=== PATIENT | male | born 1940 | race Caucasian/White ===

== ENCOUNTER → 2017-12-09 12:03 | Outpatient (CLI) | payer MEDICARE, OTHER, SELFPAY ==
--- NOTE | 2017-12-09 12:05 | DI.RAD.S_ITS ---
PROCEDURE: XR HIP W PEL IF DONE RT 2V INDICATIONS: right hip pain, no trauma TECHNIQUE: AP pelvis with lateral view(s) of the right hip. COMPARISON: None. FINDINGS: Bones: No fractures or dislocations. Pelvic ring appears intact. No suspicious bony lesions. Asymmetric right greater than left lumbosacral spine degenerative disc disease partially visualized. Facet osteoarthritis also appears greater on the right than the left. Hip joint osteoarthritis and symmetric. Soft tissues: The visualized bowel gas pattern is normal. No suspicious soft tissue calcifications. IMPRESSION: Symmetric mild to moderate hip joint osteoarthritis, no trauma found. Degenerative disc disease and facet osteoarthritis at the low lumbosacral spine visualized by this study appears greater on the right than the left and referred pain as cause of asymmetrically greater right-sided hip pain may explain this symptomatology. Dictated by: Husam Cuevas M.D. on 12/09/2017 at 12:35 Approved by: Husam Cuevas M.D. on 12/09/2017 at 12:37
== END ==
PROVIDERS: PCP Family Medicine; Visit Provider Family Medicine
DX: M16.0 Bilateral primary osteoarthritis of hip (principal); M47.817 Spondylosis without myelopathy or radiculopathy, lumbosacral region; M51.37 Other intervertebral disc degeneration, lumbosacral region
CPT/HCPCS: 73502

== ENCOUNTER → 2017-12-18 06:34 | Outpatient (CLI) | payer MEDICARE, OTHER, SELFPAY ==
--- NOTE | 2017-12-18 06:37 | DI.MRI.S_ITS ---
PROCEDURE: MR LUMBAR SPINE WO CON INDICATIONS: LOW BACK PAIN WITH R SIDE SCIATICA TECHNIQUE: Noncontrast sagittal T1 spin echo and T2 fast echo, sagittal STIR, axial T1 and T2 fast spin echo through the lumbar spine. In cases with scoliosis, additional coronal T2 fast spin echo may be performed. COMPARISON: None. FINDINGS: Image quality: Excellent. Alignment and Curvature: Loss of normal lumbar lordosis. Mild scoliosis. There is grade 1 retrolisthesis at L2-L3, L3-L4, L4-L5 and L5-S1. Bone Marrow: There are diffuse degenerative endplate signal changes. No acute vertebral body compression fractures. Spinal Cord: Conus medullaris terminates at the L1 level. Visualized cord demonstrates normal signal and size. Paraspinous Soft Tissues: No paravertebral masses. T12-L1: Mild loss disc height. Moderate disc desiccation. There is diffuse disc bulge. The central canal is minimally narrowed. Moderate bilateral foraminal stenosis. L1-L2: Mild loss disc height. Moderate disc desiccation. There is diffuse disc bulge and disc osteophyte complex. The central canal is minimally narrowed. Moderate left and mild right foraminal stenosis. L2-L3: Moderate loss disc height. Moderate disc desiccation. There is diffuse disc bulge and disc osteophyte complex. Mild bilateral facet arthropathy. The central canal is minimally narrowed. Moderate left and mild right foraminal stenosis. L3-L4: Moderate loss disc height and disc desiccation. There is broad posterior disc bulge and disc osteophyte complex. Mild bilateral facet arthropathy and hypertrophy of ligamentum flavum. The central canal is severely narrowed. Severe bilateral foraminal stenosis. L4-L5: Mild loss disc height. Moderate disc desiccation. There is broad posterior disc bulge and disc osteophyte complex. Mild bilateral facet arthropathy. The central canal is minimally narrowed. Severe bilateral foraminal stenosis. L5-S1: Preserved disc height. Moderate disc desiccation. There is diffuse posterior disc bulge at and disc osteophyte complex. The central canal is minimally narrowed. Severe bilateral foraminal stenosis. IMPRESSION: 1. Multilevel degenerative disc disease and facet arthropathy as described. 2. Severe central canal stenosis at L3-L4. 3. Multilevel foraminal stenoses, severe at L3-L4 bilaterally, L4-L5 bilaterally and L5-S1 bilaterally. Dictated by: Pradip Grimm M.D. on 12/18/2017 at 16:31 Transcribed by: ROSALINE on 12/18/2017 at 16:45 Approved by: Pradip Grimm M.D. on 12/19/2017 at 9:45
== END ==
PROVIDERS: PCP Family Medicine; Visit Provider Family Medicine
DX: M51.36 Other intervertebral disc degeneration, lumbar region (principal); M47.816 Spondylosis without myelopathy or radiculopathy, lumbar region; M48.061 Spinal stenosis, lumbar region without neurogenic claudication; M99.73 Connective tissue and disc stenosis of intervertebral foramina of lumbar region
CPT/HCPCS: 72148

== ENCOUNTER → 2018-03-05 12:22 | Outpatient (CLI) | payer MEDICARE, OTHER, SELFPAY ==
[2018-03-05 13:05] LABS: Alanine Aminotransferase 24 IU/L (21-72); Albumin 4.7 g/dL (3.5-5.0); Albumin Globulin Ratio 1.6 (1.0-2.8); Alkaline Phosphatase 49 U/L (38-126); Aspartate Aminotransferase 29 IU/L (17-59); BUN Creatinine Ratio 28.8 (6-22); Bilirubin Total 1.5 mg/dL (0.2-1.3); Blood Urea Nitrogen 23 mg/dL (9-20); Calcium 9.4 mg/dL (8.4-10.2); Carbon Dioxide 29 mmol/L (22-32); Chloride 98 mmol/L (98-107); Estimated Glomerular Filt Rate > 60.0 mL/min (>60); Globulin 2.9 g/dL (1.7-4.1); Glucose 140 mg/dL (80-110); HEMOLYSIS 37 (0-50); Potassium 4.1 mmol/L (3.4-5.1); Sodium 138 mmol/L (137-145); Total Protein 7.6 g/dL (6.3-8.2)
[2018-03-09 14:12] LABS: Hepatitis A Antibody IgM NONREACTIVE; Hepatitis Acute Panel Interp 0.01; Hepatitis B Core Antibody IgM NONREACTIVE; Hepatitis B Surface Antigen NONREACTIVE; Hepatitis C Antibody NONREACTIVE
== END ==
PROVIDERS: PCP Family Medicine; Visit Provider Family Medicine
DX: R94.5 Abnormal results of liver function studies (principal)
CPT/HCPCS: 36415; 80053; 80074

== ENCOUNTER → 2019-01-04 09:03 | Outpatient (CLI) | payer MEDICARE, OTHER, SELFPAY ==
--- NOTE | 2019-01-04 | DI.RAD.S_ITS ---
PROCEDURE: FL SHOULDER INJECTION MR/CT RT INDICATIONS: Unspecified disorder of synovium and tendon, right TECHNIQUE: The indications, alternatives, benefits, risks, and complications of the procedure were explained to the patient. Written informed consent was obtained and placed in the chart. The shoulder was examined fluoroscopically and a site for needle placement chosen for entry into the glenohumeral joint from an anterior approach. The skin was prepped and draped in a sterile fashion, and 1% lidocaine infiltrated from skin down to joint capsule. A spinal needle was inserted into the glenohumeral joint, and a small amount of iodinated contrast media injected to confirm intra-articular placement of the needle tip. This was followed by approximately 12 mL dilute solution of a gadolinium containing MR contrast agent. The needle was removed and a dressing was applied. The patient was given postprocedural instructions and sent to the MR suite for MR imaging. FINDINGS: A single fluoroscopic spot image demonstrates intra-articular location of injected iodinated contrast. IMPRESSION: Successful fluoroscopically guided administration of dilute Gadolinium solution into the shoulder joint for MR arthrogram. Dictated by: Husam Cuevas M.D. on 01/04/2019 at 10:06 Approved by: Husam Cuevas M.D. on 01/04/2019 at 10:06
--- NOTE | 2019-01-04 | DI.MRI.S_ITS ---
PROCEDURE: MR SHOULDER RT W CON INDICATIONS: Unspecified disorder of synovium and tendon, right TECHNIQUE: After the administration of 12 mL of dilute intra-articular Gadolinium contrast, oblique coronal T1 and T2 spin echo with fat saturation, oblique sagittal T1 spin echo with and without fat saturation, oblique sagittal T2 fast spin echo with fat saturation, axial T1 spin echo with fat saturation through the shoulder. COMPARISON: None. FINDINGS: Image quality: Susceptibility artifact are noted from surgical hardware in anterior humeral head from prior rotator cuff tendon repair. Rotator cuff: There is full-thickness rupture involving the anterior fibers of distal supraspinatus at its insertion the humeral head with medial retraction of torn tendon fibers and fluid-filled Measures 9 x 7 mm in mediolateral and AP dimension. Tendinosis and low-grade articular surface partial-thickness tear involving the distal infraspinatus is seen. There is suggestion of high-grade partial-thickness tear involving the distal subscapularis tendon near its insertion on the humeral head. Mild to moderate grade supraspinatus muscle atrophy and severe subscapularis muscle atrophy is seen on sagittal images. Bones and bursae: Post surgical changes in anterior aspect of humeral head from prior subscapularis tendon repair is seen. No fracture or dislocation. Moderate acromioclavicular joint and glenohumeral joint osteoarthritic changes are seen. Capsule and soft tissues: The labrum and glenohumeral ligaments appear intact. Proximal long head of biceps tendon is not visualized suggestive of torn proximal intra-articular portion of The biceps tendon. The rotator interval appears normal, without fibrosis. The coracohumeral ligament is of normal thickness. No intra-articular bodies. IMPRESSION: 1. Focal full-thickness rupture involving anterior fibers of distal supraspinatus at its insertion the humeral head with a 9 mm medial retraction of torn tendon fibers. 2. Tendinosis and low-grade articular surface partial-thickness involving distal infraspinatus at its insertion on humeral head. 3. High-grade partial to full-thickness rupture involving the distal subscapularis tendon. Prior subscapularis tendon repair with post surgical changes in humeral head. 4. Severe subscapularis muscle atrophy and mild supraspinatus muscle atrophy. 5. No evidence of focal labral tear. Suggestion of torn intra-articular portion of long head biceps tendon. 6. Moderate acromial clavicular joint and glenohumeral joint osteoarthritis. No fracture or dislocation. Dictated by: Samuel Lagunas M.D. on 01/04/2019 at 13:50 Approved by: Samuel Lagunas M.D. on 01/04/2019 at 14:03
== END ==
PROVIDERS: PCP Family Medicine; Visit Provider Orthopaedic Surgery
DX: M67.911 Unspecified disorder of synovium and tendon, right shoulder (principal); M75.121 Complete rotator cuff tear or rupture of right shoulder, not specified as traumatic; M19.011 Primary osteoarthritis, right shoulder; M62.511 Muscle wasting and atrophy, not elsewhere classified, right shoulder
CPT/HCPCS: 23350; 73222; 77002

== ENCOUNTER 2019-04-04 13:24 | Observation (INO) | payer MEDICARE, OTHER, SELFPAY ==
[2019-04-04 13:33] VITALS: BP 156/63; PULSE 61; RESP 16; TEMP 37; O2SAT 96; BMI 30.9
--- NOTE | 2019-04-04 13:34 | ED.NEUROSD ---
HPI - Neuro Symptoms/Deficit General Chief Complaint: Neuro Symptoms/Deficit Stated Complaint: Thinks TIA Time Seen by Provider: 04/04/19 13:27 Source: patient Mode of arrival: ambulatory Limitations: no limitations History of Present Illness HPI Narrative: Patient is a 79-year-old male with history of hypertension presenting with vision and speech difficulty. states that at 12:30 p.m. he was looking at a computer the son was shining in his vision got blurry he did not have any loss of vision in either eye he does had difficulty making things out and that did resolve. However the states that afterwards she could not understand anything he was saying and he was talking gibberish. That lasted for about 10 minutes. Symptoms have completely resolved now. At no time did he have any facial drooping weakness of extremities numbness or tingling. He has no chest pain heart palpitations or shortness of breath. Onset (ago): hour(s) (1) Timing confirmed by: spouse Location: speech History of same: No Relieving factors: time Related Data Previous Rx's Medication Instructions Recorded aspirin 81 mg PO QDAY #180 tab 05/05/17 sildenafil [Viagra] 50 mg PO PRN PRN #6 tab 05/05/17 losartan 100 1 tab PO QDAY #180 tab 04/06/18 mg-hydrochlorothiazide 25 mg tablet Allergies Allergy/AdvReac Type Severity Reaction Status Date / Time cat dander [CAT DANDER] Allergy Unknown Verified 11/04/18 11:36 Review of Systems Review of Systems ROS Unobtainable: All systems reviewed & are unremarkable except as noted in HPI and below Constitutional Constitutional: Denies chills, Denies fever(s), Denies lethargy and Denies weakness Eyes Eyes: Reports as per HPI, Reports blurry vision, Denies change in vision, Denies eye discharge, Denies irritation and Denies loss of vision ENT Ears, Nose, Mouth, and Throat: Denies change in voice, Denies neck pain and Denies sore throat Cardiovascular Cardiovascular: Denies dyspnea and Denies dyspnea on exertion Respiratory Respiratory: Denies cough, Denies dyspnea, Denies dyspnea on exertion and Denies wheezing Gastrointestinal Gastrointestinal: Denies abdominal pain, Denies change in bowel habits, Denies diarrhea, Denies nausea and Denies vomiting Genitourinary Genitourinary: Denies hematuria, Denies flank pain, Denies urinary incontinence and Denies urinary urgency Musculoskeletal Musculoskeletal: Denies neck pain Integumentary/Breasts Skin/Breast: Denies pruritus, Denies erythema, Denies rash and Denies wounds Neurologic Neurologic: Reports as per HPI, Denies loss of vision and Denies weakness Allergic/Immunologic Allergic/Immunologic: Denies wheezing [facility] Social History household members: spouse Smoking Status: Former smoker alcohol intake: current Exam Initial Vital Signs Initial Vital Signs: Vital Signs Temperature 98.6 F 04/04/19 13:33 Pulse Rate 61 04/04/19 13:33 Respiratory Rate 16 04/04/19 13:33 Blood Pressure 156/63 H 04/04/19 13:33 Pulse Oximetry 96 04/04/19 13:33 GENERAL: Alert pleasant well-appearing male and in no acute distress. HEENT: Head atraumatic,EOMI, pupils reactive, face symmetric, moist mucous membranes CARDIOVASCULAR: Regular rate and rhythm without murmurs, rubs or gallops. RESPIRATORY: Breath sounds equal bilaterally, no wheezes rales or rhonchi. ABDOMEN: Soft, nontender. Normoactive bowel sounds all 4 quadrants. No guarding or rebound. EXTREMITIES: Normal range of motion, no clubbing or edema. Neurovascularly intact NEUROLOGICAL: Alert and oriented x4.Normal gait and speech. Cranial nerves II through XII grossly intact. Good [id number], good ibxk-[id number], strength equal bilaterally, no dysarthria or aphasia, sensation in tact to soft touch bilaterally, no visual changes, no facial droop SKIN: Warm, dry, no laceration, no petechiae, no rashes or lesions. Scores ABCD2 Age >= 60 years: yes Initial BP. Either SBP >= 140 or DBP >= 90.: yes Clinical features of the TIA: speech disturbance without weakness Duration of symptoms: < 10 minutes History of diabetes: no ABCD2 Score: 3 NIH Stroke Scale Level of Conciousness: Alert, keenly responsive Ask month/age: Answers both questions correctly. Open/close eyes, close hand: Performs both tasks correctly Best gaze horizontal: Normal Visual venegas: No visual loss Facial palsy: Normal symetrical movement Left arm drift: No drift for full 10 sec Right arm drift: No drift for full 10 sec Left leg drift: No drift for full 10 sec Right leg drift: No drift for full 10 sec Limb ataxia: Absent Sensory on face/arms/legs: Normal, no sensory loss Best language: No aphasia, normal Dysarthria: Normal Extinction or inattention: No abnormality Total NIH Stroke scale score: 0 Course Orders Ordered: ED Orders 04/04/19 13:32 EKG-12 Lead Stat 04/04/19 13:34 CT head/brain wo con Stat 04/04/19 13:42 Complete Blood Count AUTO DIFF Stat Comprehensive Metabolic Panel Stat Partial Thromboplastin Time Stat Prothrombin Time INR Stat Troponin I Stat 04/04/19 15:08 Urine Drug Screen, Rapid Stat Urine Microscopic Stat Aspirin (Aspirin Ec) 81 mg PO DAILY ZBIGNIEW Enoxaparin Sodium (Lovenox) 40 mg SUBCUT DAILY [facility]BIGNIEW Hydrochlorothiazide (Hydrochlorothiazide) 25 mg PO DAILY ZBIGNIEW Losartan Potassium (Cozaar) 100 mg PO DAILY ZBIGNIEW Discontinued Medications Aspirin (Aspirin Chew) 324 mg PO NOW ONE Stop: 04/04/19 14:52 Last Admin: 04/04/19 14:59 Dose: 324 mg Documented by: HFARRINGTO Vital Signs Vital signs: Vital Signs - 8 hr 04/04/19 13:33 04/04/19 15:06 Temperature 98.6 F Pulse Rate 61 53 L Respiratory Rate 16 18 Blood Pressure 156/63 H Blood Pressure [Left Arm] 126/64 Pulse Oximetry 96 98 MDM - Neuro Symptoms/Deficit Lab Data Attestation: I reviewed the patient's lab results. Result diagrams: 04/04/19 13:42 04/04/19 13:42 Labs: Lab Results 04/04/19 04/04/19 04/04/19 Range/Units 13:42 13:42 13:42 WBC 5.9 (4.5-11.0) X10^3/uL RBC 4.79 (4.5-5.9) X10^6/uL Hgb 16.3 (13.5-17.5) g/dL Hct 46.5 (41-53) % MCV 97.2 (80-100) fL MCH 34.1 H (26-34) PG MCHC 35.1 (30-36) % RDW 13.5 (11.6-14.8) % Plt Count 222 (150-400) X10^3/uL Neut % (Auto) 44.5 L (50-75) % Lymph % (Auto) 43.7 H (25-40) % Kerr % (Auto) 6.3 (3-14) % Eos % (Auto) 4.4 H (2-4) % Baso % (Auto) 1.1 (0-2) % Neut # (Auto) 2600 (0331-6254) /uL Lymph # (Auto) 2600 (5313-6110) /uL Kerr # (Auto) 400 (0-900) /uL Eos # (Auto) 300 (0-450) /uL Baso # (Auto) 100 (0-100) /uL PT 11.9 (10.1-12.7) SECONDS INR 1.0 (0.9-1.3) APTT 32 (26.4-36.2) SECONDS Sodium 139 (137-145) mmol/L Potassium 3.8 (3.4-5.1) mmol/L Chloride 102 (98-107) mmol/L Carbon Dioxide 25 (22-32) mmol/L BUN 21 H (9-20) mg/dL Creatinine 0.80 (0.66-1.25) mg/dL Estimated GFR > 60.0 (>60) mL/min BUN/Creatinine Ratio 26.3 H (6-22) Glucose 120 H (80-110) mg/dL Calcium 9.2 (8.4-10.2) mg/dL Total Bilirubin 1.6 H (0.2-1.3) mg/dL AST 31 (17-59) IU/L ALT 22 (21-72) IU/L Alkaline Phosphatase 65 (38-126) U/L Troponin I 0.014 (0.01-0.034) ng/mL Total Protein 7.5 (6.3-8.2) g/dL Albumin 4.5 (3.5-5.0) g/dL Globulin 3.0 (1.7-4.1) g/dL Albumin/Globulin Ratio 1.5 (1.0-2.8) Urine RBC (0-5/HPF) Urine WBC (0-5/HPF) Urine Bacteria (None) Ur Culture Indicated? Micro UA Comment Urine Opiates Screen (Negative) Ur Oxycodone Screen (Negative) Urine Methadone Screen (Negative) Ur Barbiturates Screen (Negative) U Tricyclic Antidepress (Negative) Ur Phencyclidine Scrn (Negative) Ur Amphetamines Screen (Negative) U Methamphetamines Scrn (Negative) Ur MDMA Scrn (Ecstasy) (Negative) U Benzodiazepines Scrn (Negative) Urine Cocaine Screen (Negative) U Marijuana (THC) Screen (Negative) 04/04/19 04/04/19 Range/Units 15:08 15:08 WBC (4.5-11.0) X10^3/uL RBC (4.5-5.9) X10^6/uL Hgb (13.5-17.5) g/dL Hct (41-53) % MCV (80-100) fL MCH (26-34) PG MCHC (30-36) % RDW (11.6-14.8) % Plt Count (150-400) X10^3/uL Neut % (Auto) (50-75) % Lymph % (Auto) (25-40) % Kerr % (Auto) (3-14) % Eos % (Auto) (2-4) % Baso % (Auto) (0-2) % Neut # (Auto) (3543-7086) /uL Lymph # (Auto) (3108-9473) /uL Kerr # (Auto) (0-900) /uL Eos # (Auto) (0-450) /uL Baso # (Auto) (0-100) /uL PT (10.1-12.7) SECONDS INR (0.9-1.3) APTT (26.4-36.2) SECONDS Sodium (137-145) mmol/L Potassium (3.4-5.1) mmol/L Chloride (98-107) mmol/L Carbon Dioxide (22-32) mmol/L BUN (9-20) mg/dL Creatinine (0.66-1.25) mg/dL Estimated GFR (>60) mL/min BUN/Creatinine Ratio (6-22) Glucose (80-110) mg/dL Calcium (8.4-10.2) mg/dL Total Bilirubin (0.2-1.3) mg/dL AST (17-59) IU/L ALT (21-72) IU/L Alkaline Phosphatase (38-126) U/L Troponin I (0.01-0.034) ng/mL Total Protein (6.3-8.2) g/dL Albumin (3.5-5.0) g/dL Globulin (1.7-4.1) g/dL Albumin/Globulin Ratio (1.0-2.8) Urine RBC None seen (0-5/HPF) Urine WBC None seen (0-5/HPF) Urine Bacteria None seen (None) Ur Culture Indicated? Cult not indicated Micro UA Comment Microscopic normal Urine Opiates Screen Negative (Negative) Ur Oxycodone Screen Negative (Negative) Urine Methadone Screen Negative (Negative) Ur Barbiturates Screen Negative (Negative) U Tricyclic Antidepress Negative (Negative) Ur Phencyclidine Scrn Negative (Negative) Ur Amphetamines Screen Negative (Negative) U Methamphetamines Scrn Negative (Negative) Ur MDMA Scrn (Ecstasy) Negative (Negative) U Benzodiazepines Scrn Negative (Negative) Urine Cocaine Screen Negative (Negative) U Marijuana (THC) Screen Positive H (Negative) Point of Care Testing Glucose POC 102 Urine Dip Bedside Urine Glucose Negative Bedside Urine Bilirubin - Negative Bedside Urine Ketone - Negative Urine Specific Maynard 1.015 Bedside Urine Occult Blood - Negative Bedside Urine pH 7.0 Bedside Urine Protein - Negative Bedside Urine Urobilinogen +/- 1mg Bedside Urine Nitrite - Negative Bedside Urine Leukocytes - Negative Esterase Imaging Data CT scan - head: Radiologist's impression: PROCEDURE: CT HEAD/BRAIN WO CON INDICATIONS: problems with speech now resolved TECHNIQUE: Noncontrast 4.5 mm thick angled axial sections acquired from the foramen magnum to the vertex, with coronal and sagittal reformats. For radiation dose reduction, the following was used: automated exposure control, adjustment of mA and/or kV according to patient size. COMPARISON: None. FINDINGS: Image quality: Diagnostic. CSF spaces: Basal cisterns are patent. No extra-axial fluid collections. Ventricles are normal in size and shape. Brain: No midline shift. No intracranial masses or hemorrhage. Porter-white matter interface is normal. There is a small area of low attenuation identified involving the periventricular white matter along the anterior right frontal lobe adjacent to the caudate nucleus. There may be additional areas of periventricular white matter low attenuation. Skull and face: Calvarium and visualized facial bones are intact, without suspicious lesions. Sinuses: Visualized sinuses and mastoids are clear. IMPRESSION: 1. No acute intracranial hemorrhage. 2. Mild chronic small vessel ischemic changes. MRI may be helpful for better characterization, if there is clinical concern for acute ischemia. Dictated by: Rainer Emery M.D. on 04/04/2019 at 13:40 ECG Data Attestation: I personally reviewed and interpreted this ECG as follows: Prior ECG tracings: available for review Interpretation: Normal sinus rhythm rate 49 p.r. interval 195 QRS 125 QTC is 451 T-wave inversions noted in lead 3 similar to previous E[place] [address] elevations or depressions. MDM Narrative Medical decision making narrative: Patient's symptoms have completely resolved. Inability to understand words with complete resolution is concerning for TIA. Patient has risk factors of hypertension. Dr. fernando updated on patient's symptoms test results agrees with observation Discharge Plan Departure Patient Disposition: Admitted as Observation Clinical Impression: Brain TIA Discharge Date/Time: 04/04/19 16:47 Admit Date/Time: 04/04/19 15:56 Admit Provider: Klaudia Fernando
[2019-04-04 13:50] LABS: Add Manual Diff / Slide Review NO; Basophils Absolute Auto 100 /uL (0-100); Basophils Percent Auto 1.1 % (0-2); Eosinophils Absolute Auto 300 /uL (0-450); Eosinophils Percent Auto 4.4 % (2-4); Hematocrit 46.5 % (41-53); Hemoglobin 16.3 g/dL (13.5-17.5); Lymphocytes Absolute Auto 2600 /uL (1100-4500); Lymphocytes Percent Auto 43.7 % (25-40); Mean Corpuscular HGB Conc 35.1 % (30-36); Mean Corpuscular Hemoglobin 34.1 PG (26-34); Mean Corpuscular Volume 97.2 fL (80-100); Monocytes Absolute Auto 400 /uL (0-900); Monocytes Percent Auto 6.3 % (3-14); Neutrophils Absolute Auto 2600 /uL (1500-7000); Neutrophils Percent Auto 44.5 % (50-75); Platelet Count 222 X10^3/uL (150-400); Red Blood Cell Count 4.79 X10^6/uL (4.5-5.9); Red Cell Distribution Width 13.5 % (11.6-14.8); White Blood Cell Count 5.9 X10^3/uL (4.5-11.0)
[2019-04-04 13:57] LABS: Prothrombin Time 11.9 SECONDS (10.1-12.7)
[2019-04-04 13:59] LABS: PTT Partial Thromboplastin Tim 32 SECONDS (26.4-36.2)
[2019-04-04 14:01] LABS: Alanine Aminotransferase 22 IU/L (21-72); Albumin 4.5 g/dL (3.5-5.0); Albumin Globulin Ratio 1.5 (1.0-2.8); Alkaline Phosphatase 65 U/L (38-126); Aspartate Aminotransferase 31 IU/L (17-59); BUN Creatinine Ratio 26.3 (6-22); Bilirubin Total 1.6 mg/dL (0.2-1.3); Blood Urea Nitrogen 21 mg/dL (9-20); Calcium 9.2 mg/dL (8.4-10.2); Carbon Dioxide 25 mmol/L (22-32); Chloride 102 mmol/L (98-107); Estimated Glomerular Filt Rate > 60.0 mL/min (>60); Glucose 120 mg/dL (80-110); HEMOLYSIS 29 (0-50); Potassium 3.8 mmol/L (3.4-5.1); Sodium 139 mmol/L (137-145); Total Protein 7.5 g/dL (6.3-8.2)
[2019-04-04 14:12] LABS: Troponin I 0.014 ng/mL (0.01-0.034)
[2019-04-04] MEDS: ASPIRIN 81 MG CHEW TAB 324 MG PO (14:59)
[2019-04-04 15:06] VITALS: BP 126/64; PULSE 53; RESP 18; O2SAT 98
[2019-04-04 15:09] LABS: Bacteria Urine None Seen; RBC Urine None Seen (0-5/HPF); WBC Urine None Seen (0-5/HPF)
[2019-04-04 15:19] LABS: Urine Amphetamines Negative (Negative); Urine Barbiturates Negative (Negative); Urine Benzodiazepines Negative (Negative); Urine Cocaine Negative (Negative); Urine MDMA Negative (Negative); Urine Methadone Negative (Negative); Urine Methamphetamines Negative (Negative); Urine Morphine/Opi cutoff 2000 Negative (Negative); Urine Oxycodone Negative (Negative); Urine Phencyclidine Negative (Negative); Urine Tetrahydrocannabinol Positive (Negative); Urine Tricyclic Antidepressant Negative (Negative)
[2019-04-04 15:22] LABS: Culture Indicated Urine Cult Not Indicated; Urine Comments Microscopic Normal
[2019-04-04 16:23] VITALS: BP 111/64; PULSE 50; RESP 12; O2SAT 99
--- NOTE | 2019-04-04 16:33 | DI.MRI.S_ITS ---
PROCEDURE: MR STROKE Pre- and post-contrast brain MRI, non-contrast brain MR angiogram, pre- and postcontrast neck MR angiogram INDICATIONS: TIA TECHNIQUE: Brain: Noncontrast axial T1 spin echo, axial T2 fast spin echo, sagittal and axial FLAIR, coronal T2 fast spin echo, axial gradient echo, axial diffusion and ADC through the brain. After the administration of contrast, axial 3D VIBE of the cranial vasculature and brain. Brain MRA: Non-contrast 3-D time of flight MR angiogram, with multiple dgufnhd-wiwhfcvxb-kstiyermik (MIP) reformats performed. Neck MRA: Axial and sagittal TruFISP through the neck. Coronal dynamic MR angiogram during administration of contrast in the arterial and venous phases, with 3-dimenstional evipbyt-qpmznvqip-zsdathnsrv (MIP) reformats constructed from subtraction images. COMPARISON: [facility], CT, CT HEAD/BRAIN WO CON, 04/04/2019, 14:13. FINDINGS: Image quality: Motion is present on multiple sequences, limiting areas of fine detail evaluation. BRAIN: The ventricular system and cortical sulci demonstrate atrophy, consistent for the patient's stated age. There are areas of increased T2/FLAIR signal intensity within the periventricular and subcortical white matter. There is no acute intra-or extra axial fluid collection. No acute hemorrhage, mass lesion or midline shift. Brainstem is unremarkable. There are no areas of restricted diffusion. Globes are symmetrical. Sinuses are aerated. Osseous structures are intact. BRAIN MR ANGIOGRAM: Anterior circulation: Intracranial internal carotid arteries are normal in size and enhancement. The flow within the paired anterior cerebral arteries is normal and symmetric. The flow within the middle cerebral arteries is normal and symmetric. The anterior communicating artery is seen. No stenoses, occlusions, or aneurysms. Posterior circulation: The visualized portions of the vertebral arteries demonstrate normal caliber, and join to form a normal appearing basilar artery. The flow within the posterior cerebral arteries is normal and symmetric. No stenoses, occlusions, or aneurysms. NECK MR ANGIOGRAM: The origins of the left and right common, internal and external carotid arteries demonstrate no areas of hemodynamically significant stenosis, vascular occlusion or aneurysmal dilation. Origins of the left and right vertebral arteries are obscured secondary to motion. 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 Limited, visualized portions subclavian vasculature are unremarkable. IMPRESSION: 1. No acute intracranial process. 2. Moderate atrophy and chronic microvascular ischemic changes. 3. Vertebral artery origins are obscured secondary to motion. 4. No areas of hemodynamically significant stenosis in the anterior or posterior circulation. Dictated by: Franchesca Nixon M.D. on 04/05/2019 at 15:13 Approved by: Franchesca Nixon M.D. on 04/05/2019 at 15:33
[2019-04-04 16:50] VITALS: BP 131/81; PULSE 52; RESP 16; TEMP 36.4; O2SAT 97
[2019-04-04 17:31] VITALS: BMI 29.8
--- NOTE | 2019-04-04 18:48 | PC.NURSE ---
Addendum entered by Sarah Rodriguez R.N. 04/04/19 21:56: Pt resting quietly Denies any discomfort and any requests. Tele SB/PVC per ICU staff. HL intact. Call light w/in reach, calls appropriately for needs. Continue w/plan of care. Addendum entered by Sarah Rodriguez R.N. 04/04/19 21:55: Original Note: Pt admitted from the ER for possible TIA Lungs clear, SpO2 97% RA Tele in place, showing SB/BBB/first degree AVB per ICU staff. Pt oriented to room and call system. Call light w/in reach.
[2019-04-04 20:37] VITALS: BP 118/77; PULSE 62; RESP 16; TEMP 36.5; O2SAT 95
[2019-04-04 23:51] VITALS: BP 123/58; PULSE 52; RESP 16; TEMP 36.3; O2SAT 94
--- NOTE | 2019-04-05 00:03 | P.HP_ITS ---
History of Present Illness History of Present Illness Date Patient Seen: 04/04/19 Time Patient Seen: 21:45 Chief complaint: Thinks TIA Narrative: Mr. Moon Hernandez is a 79 year old male with a history significant for hypertension, hyperlipidemia, hepatomegaly, spinal stenosis with radiculopathy, BPH, obstructive sleep apnea and insomnia who presents to the emergency department with an episode of expressive aphasia. States at 12:30 p.m. he was looking at the computer and found he could not read the phone number on the screen and was asking his to read the phone number to him when she stated he was speaking gibberish. The patient states he knew what he wanted to say but could not. Reports the symptoms lasted approximately 10 minutes however at the encouragement of his the patient presented to the ER for evaluation. He has had no similar symptoms in the past. He denies complaints of recent cold illness, no fevers chills, headaches or dizziness. Reports no difficulty chewing or swallowing nasal congestion or sore throat. He has no chest pain or palpitations, shortness of breath cough or wheezing. He denies abdominal pain, nausea vomiting, diarrhea or constipation. He reports no difficulty urinating. Patient has normal active baseline walking 3 days a week [facility] and goes to the gym other days. Upon arrival in the ER the patient was afebrile at 98.6 with a heart rate of 61, blood pressure 156/63, respirations of 16 and saturation of 96% on room air. Patient was evaluated with a head CT which found no bleed or acute pathology but did find ischemic small-vessel changes. On laboratory analysis CBC is within normal limits as are his electrolytes. He has a BUN of 21 and creatinine is 0.8 with a ratio of 26.3. His nonfasting glucose is 120. He has an elevated bilirubin of 1.6 with a normal AST 31, ALT of 22 and alkaline phosphatase is 65. His coags within normal limits. His troponin is 0.014. His UA is negative and his U tox is positive for marijuana with the patient and nursing use of CBD oil. Patient is admitted to the hospital for TIA. 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 Social History household members: spouse Smoking Status: Former smoker alcohol intake: current Family & Social History Family History Father Age: 101 Diabetes mellitus Mother No problems noted. Social History: household members spouse Prior Living Arrangements House Safety & Behavioral: Feels Safe in Current Yes Environment Been Physically Hurt or No Threatened By a Person Suicidal Ideation Description None Suicide Plan Description No Plan Tobacco & Substance use: Smoking Status Former smoker alcohol intake current alcohol intake frequency holiday/special occasion Substance Use Type does not use Comment: The patient lives in a single family home and has been to his 2nd for 11 years. He endorses a history of his father having diabetes and multiple TIAs. His mother of a stroke. His uncle from stroke as well he has 1 sister has a history of female problems in his 3 daughters 1 who from epilepsy and 2 others in good health. Smoking: Patient quit 40 years ago prior to that he was smoking 2 packs per day. Alcohol: Occasional wine estimated less than 1 per week. Substance use: Patient endorses use of CBD oral for sciatica and sleep. Advanced directives: Patient has formal advanced directives in which he states his desire to be FULL CODE. He designates his to be surrogate decision maker. Meds Home Medications and Allergies Home Medications Medication Instructions Recorded Confirmed Type aspirin 81 mg PO QDAY #180 tab 05/05/17 11/04/18 Rx sildenafil [Viagra] 50 mg PO PRN PRN #6 tab 05/05/17 11/04/18 Rx losartan 100 1 tab PO QDAY #180 tab 04/06/18 11/04/18 Rx mg-hydrochlorothiazide 25 mg tablet Allergies Allergy/AdvReac Type Severity Reaction Status Date / Time cat dander [CAT DANDER] Allergy Unknown Verified 11/04/18 11:36 Review of Systems Review of Systems ROS Unobtainable: All systems reviewed & are unremarkable except as noted in HPI and below Exam Vital Signs (past 8 hours): - 04/04/19 16:23 04/04/19 16:50 04/04/19 20:37 Temperature 97.5 F L 97.7 F Pulse Rate 50 L 52 L 62 Respiratory Rate 12 16 16 Blood Pressure 131/81 118/77 Blood Pressure [Left Arm] 111/64 Pulse Oximetry 99 97 95 04/04/19 23:51 Temperature 97.4 F L Pulse Rate 52 L Respiratory Rate 16 Blood Pressure 123/58 L Blood Pressure [Left Arm] Pulse Oximetry 94 Oxygen Delivery Method Room Air Narrative Exam Narrative: GENERAL APPEARANCE: well developed, well nourished, articulate gentleman in no acute distress. HEENT: Symmetrical facies, no ptosis, PERRLA, conjunctiva clear, EOMs intact without nystagmus, no sinus tenderness to percussion, no rhinorrhea, mucous membranes are moist and pink without lesions or exudate. NECK/THYROID: neck supple, no JVD, no carotid bruit, no thyromegaly, trachea midline. LYMPH NODES: no cervical or supraclavicular lymphadenopathy. SKIN: warm and dry, no suspicious lesions, no rashes, good turgor. HEART: regular rate and rhythm, S1-S2 without murmur, no rubs or gallops, brisk capillary refill, no edema LUNGS: clear to auscultation bilaterally, no coarseness crackles or wheezing, no cough present CHEST: Symmetrical movement, no accessory muscle use, no pain to AP and lateral compression. ABDOMEN: Soft, no distention, no abdominal tenderness on palpation, no organomegaly, no flank or suprapubic tenderness, active bowel tones. BACK: Normal curvature, nontender to palpation, no CVA tenderness on percussion EXTREMITIES: moves all extremities, strength is 5/5 and symmetrical, no deformities or joint effusions. NEUROLOGIC: AAO x4, NIH score is 0, cranial nerves II-XII grossly intact, no extremity drift, ataxia, sensation intact without extinction. PSYCH: alert, cognitive function intact, good eye contact, appropriate with stable behavior Objective Labs Result Diagrams: 04/04/19 13:42 04/04/19 13:42 Labs: Laboratory Results - last 24 hr 04/04/19 04/04/19 04/04/19 13:42 13:42 13:42 WBC 5.9 RBC 4.79 Hgb 16.3 Hct 46.5 MCV 97.2 MCH 34.1 H MCHC 35.1 RDW 13.5 Plt Count 222 Neut % (Auto) 44.5 L Lymph % (Auto) 43.7 H Glades % (Auto) 6.3 Eos % (Auto) 4.4 H Baso % (Auto) 1.1 Neut # (Auto) 2600 Lymph # (Auto) 2600 Glades # (Auto) 400 Eos # (Auto) 300 Baso # (Auto) 100 PT 11.9 INR 1.0 APTT 32 Sodium 139 Potassium 3.8 Chloride 102 Carbon Dioxide 25 BUN 21 H Creatinine 0.80 Estimated GFR > 60.0 BUN/Creatinine Ratio 26.3 H Glucose 120 H Calcium 9.2 Total Bilirubin 1.6 H AST 31 ALT 22 Alkaline Phosphatase 65 Troponin I 0.014 Total Protein 7.5 Albumin 4.5 Globulin 3.0 Albumin/Globulin Ratio 1.5 Urine RBC Urine WBC Urine Bacteria Ur Culture Indicated? Micro UA Comment Urine Opiates Screen Ur Oxycodone Screen Urine Methadone Screen Ur Barbiturates Screen U Tricyclic Antidepress Ur Phencyclidine Scrn Ur Amphetamines Screen U Methamphetamines Scrn Ur MDMA Scrn (Ecstasy) U Benzodiazepines Scrn Urine Cocaine Screen U Marijuana (THC) Screen 04/04/19 04/04/19 15:08 15:08 WBC RBC Hgb Hct MCV MCH MCHC RDW Plt Count Neut % (Auto) Lymph % (Auto) Glades % (Auto) Eos % (Auto) Baso % (Auto) Neut # (Auto) Lymph # (Auto) Glades # (Auto) Eos # (Auto) Baso # (Auto) PT INR APTT Sodium Potassium Chloride Carbon Dioxide BUN Creatinine Estimated GFR BUN/Creatinine Ratio Glucose Calcium Total Bilirubin AST ALT Alkaline Phosphatase Troponin I Total Protein Albumin Globulin Albumin/Globulin Ratio Urine RBC None seen Urine WBC None seen Urine Bacteria None seen Ur Culture Indicated? Cult not indicated Micro UA Comment Microscopic normal Urine Opiates Screen Negative Ur Oxycodone Screen Negative Urine Methadone Screen Negative Ur Barbiturates Screen Negative U Tricyclic Antidepress Negative Ur Phencyclidine Scrn Negative Ur Amphetamines Screen Negative U Methamphetamines Scrn Negative Ur MDMA Scrn (Ecstasy) Negative U Benzodiazepines Scrn Negative Urine Cocaine Screen Negative U Marijuana (THC) Screen Positive H Assessment & Plan Assessment & Plan narrative: The patient is admitted for transient expressive aphasia resolving prior to arrival to the ER duration approximately 10 minutes. Patient had associated visual changes that to have resolved. The patient has risk factors including hypertension hyperlipidemia and a strong family history of cerebrovascular disease. 1. Acute TIA symptoms, resolved, active -symptomatology included visual changes described as a film across vision and inability to read as well as expressive aphasia. -patient's symptoms lasted approximately 10 minutes and have resolved. NIH score is 0, ABCD 2 score is 2. -the patient previously been taking aspirin but had discontinued. Discuss risks benefits, the patient received aspirin 324 mg in the ER and will restart aspirin 81 mg daily. -risk factors including hypertension, hyperlipidemia, strong family history of cerebrovascular disease in his father his mother and his uncle. -will obtain MR stroke. -will obtain echocardiogram. 2. Essential hypertension, chronic, stable -blood pressure on arrival was 156/83 improved to 120 3/58 on the floor. -no complaints of chest pain, palpitations or headache or shortness of breath. -continue home regimen with losartan hydrochlorothiazide, 100/25 daily. 3. Hyperlipidemia, chronic, presumed stable -patient is not on any anti hyperlipidemic agents -will obtain lipid panel. -start patient on atorvastatin 20 mg daily. The patient is admitted to the hospital for cardiac monitoring and further evaluation of TIA due to risks and potential complications. The patient will be admitted as observation with expected length of stay to be less than 2 midnights. Time Spent With Patient Time with patient: 25 - 35 minutes Scores GCS [place] coma scale eye opening: Spontaneous Jaimie coma scale verbal response: Orientated [place] coma scale motor response: Obey commands Jaimie coma scale total score: 15 ABCD2 Age >= 60 years: yes Initial BP. Either SBP >= 140 or DBP >= 90.: yes Clinical features of the TIA: other symptoms (Expressive aphasia now resolved) Duration of symptoms: < 10 minutes History of diabetes: no ABCD2 Score: 2 NIHSS Level of Conciousness: Alert, keenly responsive Ask month/age: Answers both questions correctly. Open/close eyes, close hand: Performs both tasks correctly Best gaze horizontal: Normal Visual venegas: No visual loss Facial palsy: Normal symetrical movement Right arm drift: No drift for full 10 sec Left leg drift: No drift for full 5 sec Right leg drift: No drift for full 5 sec Limb ataxia: Absent Sensory on face/arms/legs: Normal, no sensory loss Best language: No aphasia, normal Dysarthria: Normal Extinction or inattention: No abnormality
[2019-04-05 00:20] VITALS: O2SAT 94
[2019-04-05] MEDS: ATORVASTATIN 20 MG TABLET PO (02:35)
[2019-04-05 04:52] VITALS: BP 100/51; PULSE 60
[2019-04-05 05:00] VITALS: BP 119/61; PULSE 52; RESP 16; TEMP 36.7; O2SAT 96
[2019-04-05 05:47] LABS: Cholesterol 169 mg/dL (140-199); HDL Cholesterol 35 mg/dL (40-60); LDL Cholesterol Calculated 111 mg/dL (<100); Triglycerides 114 mg/dL (35-150)
--- NOTE | 2019-04-05 08:30 | DI.ECHO.S_ITS ---
Echocardiogram Report + + :Name: TRINIDAD RAMIREZ Study Date: 04/05/2019 Height: 68 in : :[facility] Weight: 215 lb : : Gender: Male BSA: 2.1 m2 : :: 1940 Age: 79 yrs BP: 131/81 mmHg: :Reason For Study: TIA : : Performed By: Ofelia Busby : :Referring: Klaudia SINGH E : + + Interpretation Summary Normal sinus rhythm. Normal LV size, wall thickness, wall motion and LV systolic function. EF is 60-65%. Normal chamber sizes. No significant valvular abnormalities. No source of embolism identified. Procedure: A two-dimensional transthoracic echocardiogram with color flow and Doppler was performed. The study quality was technically adequate. There is no prior echocardiogram noted for this patient. The patient was in normal sinus rhythm during the exam. Left Ventricle: The left ventricle is normal in size, wall thickness, and systolic function without any focal wall motion abnormalities. The ejection fraction is estimated to be 60-65%. Right Ventricle: The right ventricle grossly appears normal in size with probable normal systolic function. Atria: The left atrial size is normal. Right atrial size is normal. The interatrial septum is intact with no evidence for an atrial septal defect. Mitral Valve: The mitral valve is grossly normal. There is trace mitral regurgitation. Aortic Valve: The aortic valve is trileaflet. The aortic valve opens well. No aortic regurgitation is present. Tricuspid Valve: The tricuspid valve leaflets are thin and pliable. There is mild tricuspid regurgitation. The right ventricular systolic pressure is estimated to be at least 25 mmHg based on an estimated right atrial pressure of 3 mm Hg. Pulmonic Valve: The pulmonic valve is not well seen, but is grossly normal. There is no pulmonic valvular regurgitation. Great Vessels: The aortic root is normal size. The dimensions of the ascending aorta are normal. The aortic arch is at the upper limits of normal in size. The IVC is of normal diameter and collapses greater than 50% with a sniff. This suggests a low right atrial pressure of 3 mm Hg. Pericardium/ Pleura There is no pericardial effusion. There is no pleural effusion. MMode/2D Measurements & Calculations LVIDd: 5.5 cm Ao root diam: 3.4 cm LVIDs: 3.6 cm Aortic Jxn: 2.6 cm FS: 34.2 % asc Aorta Diam: 3.1 cm EPSS: 1.1 cm Ao Arch Diam (Prox Trans): 3.2 cm IVSd: 0.74 cm LVPWd: 1.0 cm LV marquez. diameter/BSA (cm/m^2): 2.6 LV sys. diameter/BSA (cm/m^2): 1.7 LA dimension: 4.1 cm RA long axis: 4.8 cm LA A2 area: 20.4 cm2 RA area: 18.3 cm2 LA A4 area: 16.1 cm2 RA vol: 59.7 ml LA length (vol): 4.8 cm RA : 28.3 ml/m2 LA vol: 58.5 ml IVC diam: 1.5 cm LA vol index: 27.8 ml/m2 RVDd major: 5.2 cm RVD1 (basal): 3.3 cm RVD2 (mid): 3.3 cm Doppler Measurements & Calculations Ao V2 max: 164.9 cm/sec MV E max alonso: 75.0 cm/sec Ao V2 mean: 107.7 cm/sec MV A max alonso: 94.4 cm/sec Ao max P.9 mmHg MV E/A: 0.79 Ao mean P.4 mmHg Med Peak E' Alonso: 6.5 cm/sec Ao V2 VTI: 34.0 cm E/E' med: 11.5 Lat Peak E' Alonso: 8.7 cm/sec E/E' lat: 8.6 E/e' average: 10.0 MV dec time: 0.24 sec MV P1/2t: 71.7 msec TR max alonso: 234.9 cm/sec MV P1/2t max alonso: 76.3 cm/sec TR max P.1 mmHg MVA(P1/2t): 3.1 cm2 PA V2 max: 96.7 cm/sec PA V2 mean: 64.8 cm/sec PA mean P.9 mmHg PA Accel Time: 0.13 sec _ Electronically signed by: Kerri Patricio M.D. on Reading Physician:04/05/2019 07:24 PM
[2019-04-05 09:00] VITALS: BP 133/68; PULSE 51; RESP 17; TEMP 36.7; O2SAT 95
[2019-04-05] MEDS: hydroCHLOROthiazide 25 MG TABLET PO (09:17)
[2019-04-05] MEDS: ASPIRIN EC 81 MG TABLET PO (09:17)
[2019-04-05] MEDS: ENOXAPARIN 40 MG/0.4 ML SYRINGE SUBCUT (09:18)
[2019-04-05] MEDS: LOSARTAN 50 MG TABLET 100 MG PO (09:18)
[2019-04-05] MEDS: SODIUM CHLORIDE 0.9% FLUSH 10 ML IV (09:18)
[2019-04-05 09:40] VITALS: O2SAT 96
--- NOTE | 2019-04-05 09:44 | PC.NURSE ---
Patient alert,oriented denies pain and nausea. NIH 0, patient ambulating indep in room.
[2019-04-05 15:35] VITALS: BP 110/72; PULSE 53; RESP 18; TEMP 36.6; O2SAT 94
--- NOTE | 2019-04-05 15:44 | P.DS_ITS ---
History of Present Illness History of Present Illness Date Patient Seen: 04/05/19 Time Patient Seen: 15:45 Chief complaint: Thinks TIA Narrative: As per Jaydon CONNOR Mr. Moon Hernandez is a 79 year old male with a history significant for hypertension, hyperlipidemia, hepatomegaly, spinal stenosis with radiculopathy, BPH, obstructive sleep apnea and insomnia who presents to the emergency department with an episode of expressive aphasia. States at 12:30 p.m. he was looking at the computer and found he could not read the phone number on the screen and was asking his to read the phone number to him when she stated he was speaking gibberish. The patient states he knew what he wanted to say but could not. Reports the symptoms lasted approximately 10 minutes however at the encouragement of his the patient presented to the ER for evaluation. He has had no similar symptoms in the past. He denies complaints of recent cold illness, no fevers chills, headaches or dizziness. Reports no difficulty chewing or swallowing nasal congestion or sore throat. He has no chest pain or palpitations, shortness of breath cough or wheezing. He denies abdominal pain, nausea vomiting, diarrhea or constipation. He reports no difficulty urinating. Patient has normal active baseline walking 3 days a week [place] and goes to the gym other days. Upon arrival in the ER the patient was afebrile at 98.6 with a heart rate of 61, blood pressure 156/63, respirations of 16 and saturation of 96% on room air. Patient was evaluated with a head CT which found no bleed or acute pathology but did find ischemic small-vessel changes. On laboratory analysis CBC is within normal limits as are his electrolytes. He has a BUN of 21 and creatinine is 0.8 with a ratio of 26.3. His nonfasting glucose is 120. He has an elevated paul irubin of 1.6 with a normal AST 31, ALT of 22 and alkaline phosphatase is 65. His coags within normal limits. His troponin is 0.014. His UA is negative and his U tox is positive for marijuana with the patient and nursing use of CBD oil. Patient is admitted to the hospital for TIA. Discharge Providers Provider Date of admission: 04/04/19 15:56 Discharge Date: 04/05/19 Primary care physician: Semaj Sahu MD Discharge provider: Jaydon Smallwood DO Summary Hospital Course Discharge Diagnosis: 1. TIA - active, present on admission. 2. Essential hypertension, chronic, stable 3. Hyperlipidemia, chronic, presumed stable Hospital Course: The patient is admitted for transient expressive aphasia resolving prior to arrival to the ER duration approximately 10 minutes. Patient had associated visual changes that to have resolved. The patient has risk factors including hypertension hyperlipidemia and a strong family history of cerebrovascular disease. He underwent a brain MRI which showed age related matter loss, however no ischemic lesions and no significant carotid stenosis. He returned to baseline and was discharged home, he had an echocardiogram which has not resulted, but we will call him if results are noteworthy. 1. TIA - active -symptomatology included visual changes described as a film across vision and in ability to read as well as expressive aphasia. -patient's symptoms lasted approximately 10 minutes and have resolved. NIH score is 0, ABCD 2 score is 2. -resume aspirin 81 mg daily. -risk factors including hypertension, hyperlipidemia, strong family history of cerebrovascular disease in his father his mother and his uncle. -TTE pending as noted above. 2. Essential hypertension, chronic, stable -blood pressure on arrival was 156/83 improved to 120 3/58 on the floor. -no complaints of chest pain, palpitations or headache or shortness of breath. -continue home regimen with losartan hydrochlorothiazide, 100/25 daily. 3. Hyperlipidemia, chronic, presumed stable -patient is not on any anti hyperlipidemic agents -LDL 111 -start patient on atorvastatin 40 mg daily for TIA. Status at Discharge Cognitive/behavioral status at discharge: oriented Functional status at discharge: independent ambulation Overall status at discharge: patient is back to baseline Time Spent with Patient Time spent: Greater than 30 minutes Exam Vital Signs (past 8 hours): - 04/05/19 09:00 04/05/19 09:40 Temperature 98.0 F Pulse Rate 51 L Respiratory Rate 17 Blood Pressure 133/68 Pulse Oximetry 95 96 Oxygen Delivery Method Room Air Oxygen Flow Rate 0 Narrative Exam Narrative: GENERAL APPEARANCE: Well developed, well nourished, in no acute distress. SKIN: Inspection of the skin reveals no rashes, ulcerations or petechiae. HEENT: The sclerae were anicteric and conjunctivae were pink and moist. Extraocular movements were intact and pupils were equal, round with normal accommodation. External inspection of the ears and nose showed no scars, lesions, or masses. Lips, teeth, and gums showed normal mucosa. The oral mucosa, hard and soft palate, tongue and posterior pharynx were unremarkable. NECK: Supple and symmetric. There was no thyroid enlargement, and no tenderness, or masses were felt. CHEST: Normal AP diameter and normal contour without any kyphoscoliosis. LUNGS: Auscultation of the lungs revealed no wheezes, rhonchi, or rales. CARDIOVASCULAR: There was a regular rate and rhythm without any murmurs, gallops, rubs. Peripheral pulses were 2+ and symmetric. ABDOMEN: Soft and nontender with normal bowel sounds. No ascites was noted. MUSCULOSKELETAL: There was no tenderness or effusions noted. Muscle strength and tone were normal. EXTREMITIES: No cyanosis, clubbing or edema. NEUROLOGIC: Alert and oriented x 3. Normal affect. Gait was normal. Strength is +5/5 in the Upper Extremities and Lower Extremities Bilaterally. Sensation to touch was normal. Objective Labs Result Diagrams: 04/04/19 13:42 04/04/19 13:42 Labs: Laboratory Results - last 24 hr 04/05/19 05:26 Triglycerides 114 Cholesterol 169 LDL Cholesterol, Calc 111 H HDL Cholesterol 35 L Discharge Plan Discharge Plan Patient Disposition: Home Discharge comment: You were admitted to the hospital for a TIA. Your symptoms improved prior to being admitted. Your brain MRI was unremarkable and showed no stenoses of your carotid arteries. You should continue aspirin, your blood pressure medications, and Lipitor at home. You should follow up with your primary care doctor in the next 2 weeks. We will call you with any abnormal echocardiogram results. Discharge Med Rec/Prescriptions Prescriptions: New atorvastatin [Lipitor] 40 mg tablet 40 mg PO BEDTIME 30 Days Qty: 30 RF: 0 Continued losartan-hydrochlorothiazide 100-25 mg tablet 1 tab PO QDAY Qty: 180 RF: 1 sildenafil [Viagra] 50 MG tablet 50 mg PO PRN PRNQty: 6 RF: 6 aspirin 81 MG tablet,delayed release (DR/EC) 81 mg PO QDAY Qty: 180 RF: 1 Follow up/Referrals: Semaj Sahu MD [Primary Care Provider] - Provider Discharge Instructions Diet: Diet as Tolerated Activity: No restrictions. Visit Report/Discharge Packet Visit Report Forms: Stroke Signs & Symptoms Discharge Data Primary Care Provider: Semaj Sahu Attending Provider: Klaudia Fernando Admit Date/Time: 04/04/19 15:56
--- NOTE | 2019-04-05 15:57 | CM.DANOTE ---
DCP/Assessment: Reviewed chart. Patient is a 79yr old male admitted to [facility] under OBS status for TIA like symptoms. Primary payor is 1)Medicare 2)[employer]. Met with patient explained CM/SW role. Patient alert and oriented, dressed, and sitting on bed at time of visit. Patient reports that he plans to discharge home today. Patient completely I in all ADL's and does not anticipate any d/c planning needs. P: Home today. MAE Navarro Discharge Planning/Care Management Advanced directive, confirm from FAMILY Start: 04/04/19 17:40 Freq: Q24H Status: Active Protocol: Document 04/04/19 17:56 LDV (Rec: 04/04/19 17:56 [id number] [id number]) Advance Directive, confirm on record Time 17:30 Person contacted pt Copy received No CM Discharge Assessment Start: 04/05/19 15:55 Freq: Status: Active Protocol: Document 04/05/19 15:56 KJS (Rec: 04/05/19 15:57 KJS [id number]) Discharge Planning Assessment Assigned Traffic Court Referee MAE Navarro Advance Directives? Yes History Provided By Patient,Medical Record Prior Living Arrangements House Household Members spouse Type of transporation used prior to Drives own vehicle admit Independent with ADL's Yes Is patient alert and oriented? Yes Caregiver for Another No Barriers to Discharge No Discharge Plan Home Transportation Arrangement Family to provide transport Referrals Initiated None needed Whiteboard Updated in Patient Room with Yes name and ext. # of Traffic Court Referee Review Status In Process Next Review Type Continued Stay Review
--- NOTE | 2019-04-05 16:20 | PC.NURSE ---
Pt returned from test. MD in to see. Discharge orders recieved. HL discontinued intact/ Home instructions and RX given to pt. w/ understanding. escored to waiting vehicle w/ staff. D/C in stable condition.
== END 2019-04-05 16:00 | disposition home or self-care (01) ==
LOC: ED 15:48 → AC 15:56
PROVIDERS: Nurse Practitioner Adult Health; Admitting Provider Family Medicine; Emergency Provider Emergency Medicine; PCP Family Medicine; Visit Provider Family Medicine
DX: G45.9 Transient cerebral ischemic attack, unspecified (principal); R29.818 Other symptoms and signs involving the nervous system; I10 Essential (primary) hypertension; E78.5 Hyperlipidemia, unspecified
CPT/HCPCS: 36415; 36591; 70450; 70548; 70553; 80053; 80061; 80305; 81003; 81015; 82962; 84484; 85025; 85610; 85730; 93005; 93010; 93306; 99283; 99285; G0378; A9579; J1650

== ENCOUNTER → 2019-12-29 14:00 | Outpatient (CLI) | payer MEDICARE, OTHER, SELFPAY ==
--- NOTE | 2019-12-29 | DI.MRI.S_ITS ---
PROCEDURE: MR CERVICAL SPINE WO CON INDICATIONS: Radiculopathy, site unspecified TECHNIQUE: Noncontrast sagittal T1 spin echo and T2 fast spin echo, sagittal STIR, foraminal oblique sagittal T2 fast spin echo, and axial gradient echo or T2 fast spin echo through the cervical spine. COMPARISON: None. FINDINGS: Image quality: Diagnostic. Patient motion artifact. Alignment and Curvature: Trace degenerative retrolisthesis of C5 on C6. Mild degenerative anterolisthesis of C4 on C5 measuring 3 mm. Mild degenerative anterolisthesis of C3 on C4 measuring 3 mm. Bone Marrow: Marrow demonstrates normal overall signal. Spinal Cord: Visualized spinal cord has normal size and signal. No cerebellar tonsillar herniation. Paraspinous Soft Tissues: No paravertebral masses. Prevertebral soft tissues are normal in thickness. C2-C3: No canal stenosis. Bilateral facet hypertrophy. Mild to moderate bilateral foraminal stenosis. C3-C4: Posterior disc bulge mildly indents the cord. Anterolisthesis of C3 on C4. Bilateral facet hypertrophy. Mild canal stenosis. Bilateral uncovertebral joint hypertrophy. Prominent bilateral facet hypertrophy. Severe right foraminal narrowing and moderate to severe left foraminal narrowing with bilateral flattening deformity on the exiting C4 nerve root sleeves. C4-C5: Disc bulge, mild anterolisthesis of C4 on C5. Mild canal stenosis. Bilateral uncovertebral joint hypertrophy and facet hypertrophy. Mild to moderate right foraminal narrowing. Severe left foraminal narrowing with left C5 nerve root impingement. C5-C6: Severe disc height loss. Posterior disc plus osteophyte indents on the cord. Moderate to severe canal stenosis. Uncovertebral joint hypertrophy and facet hypertrophy bilaterally. Severe bilateral foraminal narrowing with bilateral C6 nerve root impingement. C6-C7: Severe disc height loss. Posterior disc plus osteophyte. Mild indentation on the ventral cord. Moderate canal stenosis. Bilateral uncovertebral joint hypertrophy and facet hypertrophy. Moderate to severe right foraminal narrowing and moderate left foraminal narrowing with bilateral flattening deformity on the exiting bilateral C7 nerve root sleeves. C7-T1: No canal stenosis or foraminal stenosis. IMPRESSION: 1. Severe cervical spondylitic change. 2. Canal stenosis is mild at C3-C4, mild at C4-C5, moderate to severe at C5-C6, and moderate at C6-C7. 3. Significant multilevel bilateral foraminal narrowing as described above. Dictated by: Taz Oneill M.D. on 12/29/2019 at 15:10 Approved by: Taz Oneill M.D. on 12/29/2019 at 15:22
== END ==
PROVIDERS: PCP Family Medicine; Referring Provider Orthopaedic Surgery; Visit Provider Orthopaedic Surgery
DX: M47.22 Other spondylosis with radiculopathy, cervical region (principal); M48.02 Spinal stenosis, cervical region
CPT/HCPCS: 72141

== ENCOUNTER → 2020-03-28 07:33 | Outpatient (CLI) | payer MEDICARE, OTHER, SELFPAY ==
[2020-03-28 08:30] LABS: Add Manual Diff / Slide Review NO; Basophils Absolute Auto 0 /uL (0-100); Basophils Percent Auto 0.6 % (0-2); Eosinophils Absolute Auto 300 /uL (0-450); Eosinophils Percent Auto 5.6 % (2-4); Hematocrit 46.3 % (41-53); Hemoglobin 16.1 g/dL (13.5-17.5); Lymphocytes Absolute Auto 1800 /uL (1100-4500); Lymphocytes Percent Auto 35.8 % (25-40); Mean Corpuscular HGB Conc 34.7 % (30-36); Mean Corpuscular Hemoglobin 33.3 PG (26-34); Mean Corpuscular Volume 95.9 fL (80-100); Monocytes Absolute Auto 500 /uL (0-900); Monocytes Percent Auto 9.4 % (3-14); Neutrophils Absolute Auto 2500 /uL (1500-7000); Neutrophils Percent Auto 48.6 % (50-75); Platelet Count 235 X10^3/uL (150-400); Red Blood Cell Count 4.83 X10^6/uL (4.5-5.9); Red Cell Distribution Width 12.8 % (11.6-14.8); White Blood Cell Count 5.1 X10^3/uL (4.5-11.0)
[2020-03-28 08:40] LABS: Alanine Aminotransferase 31 IU/L (<50); Albumin 4.4 g/dL (3.5-5.0); Albumin Globulin Ratio 1.6 (1.0-2.8); Alkaline Phosphatase 66 U/L (38-126); Aspartate Aminotransferase 38 IU/L (17-59); BUN Creatinine Ratio 20.8 (6-22); Bilirubin Total 1.7 mg/dL (0.2-1.3); Blood Urea Nitrogen 16 mg/dL (9-20); Calcium 9.5 mg/dL (8.4-10.2); Carbon Dioxide 27 mmol/L (22-32); Chloride 103 mmol/L (98-107); Cholesterol 142 mg/dL (140-199); Estimated Glomerular Filt Rate > 60.0 mL/min (>60); Globulin 2.7 g/dL (1.7-4.1); Glucose 116 mg/dL (80-110); HDL Cholesterol 31 mg/dL (40-60); HEMOLYSIS < 15 (0-50); LDL Cholesterol Calculated 53 mg/dL (<100); Potassium 4.4 mmol/L (3.4-5.1); Sodium 138 mmol/L (137-145); Total Protein 7.1 g/dL (6.3-8.2); Triglycerides 292 mg/dL (35-150)
== END ==
PROVIDERS: PCP Family Medicine; Referring Provider Family Medicine; Visit Provider Family Medicine
DX: I10 Essential (primary) hypertension (principal)
CPT/HCPCS: 36415; 80053; 80061; 85025

== ENCOUNTER → 2021-03-28 10:44 | Outpatient (CLI) | payer MEDICARE, OTHER, SELFPAY ==
[2021-03-28 12:10] LABS: Add Manual Diff / Slide Review NO; Basophils Absolute Auto 0 /uL (0-100); Basophils Percent Auto 0.6 % (0-2); Eosinophils Absolute Auto 200 /uL (0-450); Eosinophils Percent Auto 2.9 % (2-4); Hematocrit 45.6 % (41-53); Lymphocytes Absolute Auto 2400 /uL (1100-4500); Lymphocytes Percent Auto 34.5 % (25-40); Mean Corpuscular Hemoglobin 33.8 PG (26-34); Mean Corpuscular Volume 96.7 fL (80-100); Monocytes Absolute Auto 400 /uL (0-900); Neutrophils Absolute Auto 3900 /uL (1500-7000); Platelet Count 203 X10^3/uL (150-400); Red Blood Cell Count 4.71 X10^6/uL (4.5-5.9); Red Cell Distribution Width 12.8 % (11.6-14.8)
[2021-03-28 12:18] LABS: Alanine Aminotransferase 52 IU/L (<50); Albumin 4.8 g/dL (3.5-5.0); Albumin Globulin Ratio 1.7 (1.0-2.8); Alkaline Phosphatase 64 U/L (38-126); Aspartate Aminotransferase 65 IU/L (17-59); BUN Creatinine Ratio 22.4 (6-22); Bilirubin Total 1.7 mg/dL (0.2-1.3); Blood Urea Nitrogen 19 mg/dL (9-20); Calcium 9.3 mg/dL (8.4-10.2); Carbon Dioxide 28 mmol/L (22-32); Chloride 101 mmol/L (98-107); Cholesterol 107 mg/dL (140-199); Estimated Glomerular Filt Rate > 60.0 mL/min (>60); Globulin 2.8 g/dL (1.7-4.1); Glucose 107 mg/dL (80-110); HDL Cholesterol 32 mg/dL (40-60); HEMOLYSIS 47 (0-50); LDL Cholesterol Calculated 46 mg/dL (<100); Potassium 4.3 mmol/L (3.4-5.1); Sodium 138 mmol/L (137-145); Total Protein 7.6 g/dL (6.3-8.2); Triglycerides 146 mg/dL (35-150)
== END ==
PROVIDERS: PCP Family Medicine; Referring Provider Family Medicine; Visit Provider Family Medicine
DX: I10 Essential (primary) hypertension (principal); E78.00 Pure hypercholesterolemia, unspecified
CPT/HCPCS: 36415; 80053; 80061; 85025

== ENCOUNTER 2021-12-12 20:48 | Emergency (ER) | payer MEDICARE, OTHER, SELFPAY ==
[2021-12-12 20:53] VITALS: BP 176/76; PULSE 70; RESP 14; TEMP 38.2; O2SAT 95
--- NOTE | 2021-12-12 21:56 | ED_ITS ---
HPI - URI/Sore Throat General Chief Complaint: Upper Respiratory Symptoms Stated Complaint: covid +, fever Time Seen by Provider: 12/12/21 21:53 Source: patient Mode of arrival: Ambulatory Limitations: no limitations History of Present Illness HPI Narrative: The patient returns to this area from a flight from [place] 4 days ago. He is up-to-date on COVID-19 immunizations. He woke this morning with myalgia and f atigue. He has a mild headache. He has no sore throat. He has minimal cough, no dyspnea. He has no chest discomfort. He does have a low-grade fever. He did a home test for COVID that is positive. His is asymptomatic. He initially thought he had mild allergies, he is obviously sicker than that. Although he has used albuterol in the past, He has no asthma or underlying respiratory illness. He currently has no GI symptoms. His oral intake is normal. He has no urinary complaints. He has a generalized myalgia and arthralgia, but no restriction of motion. Related Data Previous Rx's Medication Instructions Recorded aspirin 81 mg tablet,delayed 81 mg PO QDAY #180 tab 05/05/17 release sildenafil 50 mg tablet (Viagra) 50 mg PO PRN PRN #6 tab 05/05/17 losartan 100 1 tab PO QDAY #180 tab 04/06/18 mg-hydrochlorothiazide 25 mg tablet albuterol sulfate 90 mcg/actuation 2 puff INHALATION Q4-6H PRN #8.5 06/14/19 aerosol inhaler gram azithromycin 250 mg tablet See Rx Instructions PO .COMPLEX #6 06/14/19 tab benzonatate 100 mg capsule 100 mg PO BID PRN #14 cap 06/14/19 (Tessalon Brian) nirmatrelvir 300 mg (150 mg x See Rx Instructions .ROUTE 12/13/21 2)-ritonavir 100 mg tablet (EUA) .COMPLEX #30 tab Allergies Allergy/AdvReac Type Severity Reaction Status Date / Time cat dander [CAT DANDER] Allergy Unknown Verified 12/12/21 20:57 Review of Systems Review of Systems ROS Unobtainable: All systems reviewed & are unremarkable except as noted in HPI and below Patient History Medical History (Updated 12/12/21 @ 23:28 by Nick Haddad MD) Actinic keratosis (Unknown) Allergic rhinitis (Unknown) BPH (benign prostatic hyperplasia) (Unknown) Central sleep apnea Elevated liver function tests Erectile dysfunction (05/16/16) Erectile dysfunction (Unknown) Essential hypertension (05/16/16) Hepatomegaly Hip pain Hyperlipemia (Unknown) Hypertension (Unknown) Insomnia (Unknown) Lumbar spinal stenosis Neural foraminal stenosis of lumbar spine Pain of right lower extremity Paresthesia and pain of right extremity Posttraumatic stress disorder (05/16/16) PTSD (post-traumatic stress disorder) (Unknown) Pure hypercholesterolemia (05/16/16) Sleep apnea (Unknown) Surgical History S/P laminectomy S/P rotator cuff repair (01/2015) Family History Father Age: 104 Diabetes mellitus Mother No problems noted. Social History household members: spouse Smoking Status: Former smoker alcohol intake: current Smoking Status: Former smoker alcohol intake frequency: holidays/special occasions only Substance Use Type: does not use Exam Initial Vital Signs Initial Vital Signs: Vital Signs Temperature 100.8 F H 12/12/21 20:53 Pulse Rate 70 12/12/21 20:53 Respiratory Rate 14 12/12/21 20:53 Blood Pressure 176/76 H 12/12/21 20:53 Pulse Oximetry 95 12/12/21 20:53 Const General: cooperative, healthy appearing, well developed and well groomed [facility] Head: normal to inspection, normocephalic and atraumatic Face and sinus: normal facial exam and sinuses nontender Mouth: oral mucosae normal Throat: posterior oropharynx normal Eyes General: Yes appearance normal, both eyes and all related structures Cornea: corneas normal Pupils: PERRL EOM: EOM intact bilaterally Neck Neck: normal visual inspection and full ROM Chest Chest: normal inspection of the chest Resp Auscultation: clear to auscultation bilaterally Cardio Rate: regular rate Rhythm: regular rhythm Heart Sounds: S1 normal, S2 normal, no murmurs and no rubs GI Inspection: normal to inspection Palpation: soft and No tender Auscultation: normal bowel sounds Back/Spine/Pelvis Back: No CVA tenderness Skin General: no rashes or lesions noted Neuro General: patient alert, patient awake, patient oriented x3 and no focal motor deficits Extrem General: normal to inspection, full ROM, no pedal edema and no calf tenderness Psych Mental Status: mental status grossly normal Course Course Course Narrative: The patient is symptomatic with COVID-19. The diagnosis confirmed. The patient has the risk factor of age. Screening would find him to be an appropriate candidate. A Paxlovid prescription has been given. He informs me he is feeling much better, I told him to not initiate the medications tomorrow if he continues to improve. Orders Ordered: ED Orders 12/12/21 22:07 Chest [XR chest 1V] Stat 12/12/21 22:17 CBC with manual diff [Complete Blood Count MAN DIFF] Stat CMP [Comprehensive Metabolic Panel] Stat 12/12/21 22:23 COVID19 -Nasal RAPID/Pre-Proc Routine Discontinued Medications Acetaminophen (Acetaminophen 325 Mg Tablet) 650 mg PO NOW ONE Stop: 12/12/21 22:08 Last Admin: 12/12/21 22:12 Dose: 650 mg Documented by: RENAE Vital Signs Vital signs: Vital Signs - 8 hr 12/12/21 20:53 Temperature 100.8 F H Pulse Rate 70 Respiratory Rate 14 Blood Pressure 176/76 H Pulse Oximetry 95 MDM - URI/Sore Throat Lab Data Result diagrams: 12/12/21 22:17 12/12/21 22:17 Labs: Lab Results 12/12/21 12/12/21 12/12/21 Range/Units 22:17 22:17 22:23 WBC 6.1 (4.5-11.0) X10^3/uL RBC 4.52 (4.5-5.9) X10^6/uL Hgb 15.2 (13.5-17.5) g/dL Hct 42.7 (41-53) % MCV 94.4 (80-100) fL MCH 33.5 (26-34) PG MCHC 35.5 (30-36) % RDW 12.6 (11.6-14.8) % Plt Count 167 (150-400) X10^3/uL Total Counted 100 Seg Neutrophils % 60.0 (38-70) % Band Neutrophils % 2.0 L (3-7) % Lymphocytes % (Manual) 10.0 L (25-45) % Atypical Lymphs % 11.0 H ( - 0) % Monocytes % (Manual) 13.0 H (2-11) % Eosinophils % (Manual) 3.0 (2-4) % Basophils % (Manual) 1.0 (0-1) % Neutrophils # (Manual) 3782 ([id number]) /uL RBC Morphology Normal morphology Sodium 138 (137-145) mmol/L Potassium 4.0 (3.4-5.1) mmol/L Chloride 103 (98-107) mmol/L Carbon Dioxide 26 (22-32) mmol/L BUN 17 (9-20) mg/dL Creatinine 0.82 (0.66-1.25) mg/dL Estimated GFR > 60 (>60) mL/min BUN/Creatinine Ratio 20.7 (6-22) Glucose 152 H (80-110) mg/dL Calcium 8.7 (8.4-10.2) mg/dL Total Bilirubin 1.5 H (0.2-1.3) mg/dL AST 80 H (17-59) IU/L ALT 53 H (<50) IU/L Alkaline Phosphatase 68 (38-126) U/L Total Protein 7.6 (6.3-8.2) g/dL Albumin 4.4 (3.5-5.0) g/dL Globulin 3.2 (1.7-4.1) g/dL Albumin/Globulin Ratio 1.4 (1.0-2.8) SARS-CoV-2 (PCR) Positive H (Negative) Imaging Data Chest x-ray: Radiologist's Impression: No acute cardiovascular disease. Discharge Plan Departure Patient Disposition: Home Clinical Impression: COVID-19 Instructions: Coronavirus Disease 2019 Activity Restrictions/Additional Instructions: I have prescribed Paxlovid 5 day supply to [facility]. Take Tylenol 2 tabs every 4 hours as needed for headache, or body aches. Rest, be sure you are drinking plenty of fluids. Based on risk factors, in health otherwise, you are a candidate for antivirals. I have prescribed Paxlovid 5 day supply to [facility]. Do not take Viagra while using this medication. Return here as needed. Prescriptions: New nirmatrelvir-ritonavir 150 mg x 2- 100 mg tablet See Rx Instructions .ROUTE .COMPLEX Qty: 30 0RF Rx Instructions: take TWO 150 mg tablets of nirmatrelvir with ONE 100 mg tablet of ritonavir twice daily for 5 days. Dispense the appropriate number pills. No Action losartan-hydrochlorothiazide 100-25 mg tablet 1 tab PO QDAY Qty: 180 1RF azithromycin 250 mg tablet See Rx Instructions PO .COMPLEX Qty: 6 0RF Rx Instructions: take 500 mg today (day 1), then 250 mg for 4 days (days 2-5) PO albuterol sulfate 90 mcg/actuation HFA aerosol inhaler 2 puff INHALATION Q4-6H PRN (Reason: bronchospasm) Qty: 8.5 0RF benzonatate [Tessalon Perles] 100 mg capsule 100 mg PO BID PRN (Reason: cough) Qty: 14 0RF sildenafil [Viagra] 50 MG tablet 50 mg PO PRN PRNQty: 6 6RF aspirin 81 MG tablet,delayed release (DR/EC) 81 mg PO QDAY Qty: 180 1RF Referrals: Semaj Sahu MD [Primary Care Provider] -
--- NOTE | 2021-12-12 22:07 | DI.RAD.S_ITS ---
PROCEDURE: XR CHEST 1V INDICATIONS: Covid-19 TECHNIQUE: One view of the chest was acquired. COMPARISON: None. FINDINGS: Surgical changes and devices: None. Lungs and pleura: Lungs are clear. There is elevation of the right hemidiaphragm. No pleural effusions or pneumothorax. Mediastinum: Mediastinal contours appear normal. Heart size is normal. Bones and chest wall: No suspicious bony lesions. Overlying soft tissues appear unremarkable. IMPRESSION: 1. No radiographic evidence of pneumonia. Dictated by: Lazaro German M.D. on 12/12/2021 at 23:44 Approved by: Lazaro German M.D. on 12/12/2021 at 23:45
[2021-12-12] MEDS: ACETAMINOPHEN 325 MG TABLET 650 MG PO (22:12)
[2021-12-12 22:28] LABS: Hematocrit 42.7 % (41-53); Hemoglobin 15.2 g/dL (13.5-17.5); Mean Corpuscular HGB Conc 35.5 % (30-36); Mean Corpuscular Hemoglobin 33.5 PG (26-34); Mean Corpuscular Volume 94.4 fL (80-100); Platelet Count 167 X10^3/uL (150-400); Red Blood Cell Count 4.52 X10^6/uL (4.5-5.9); Red Cell Distribution Width 12.6 % (11.6-14.8); White Blood Cell Count 6.1 X10^3/uL (4.5-11.0)
[2021-12-12 22:35] LABS: Alanine Aminotransferase 53 IU/L (<50); Albumin 4.4 g/dL (3.5-5.0); Albumin Globulin Ratio 1.4 (1.0-2.8); Alkaline Phosphatase 68 U/L (38-126); Aspartate Aminotransferase 80 IU/L (17-59); BUN Creatinine Ratio 20.7 (6-22); Bilirubin Total 1.5 mg/dL (0.2-1.3); Blood Urea Nitrogen 17 mg/dL (9-20); Calcium 8.7 mg/dL (8.4-10.2); Carbon Dioxide 26 mmol/L (22-32); Chloride 103 mmol/L (98-107); Estimated Glomerular Filt Rate > 60 mL/min (>60); Globulin 3.2 g/dL (1.7-4.1); Glucose 152 mg/dL (80-110); HEMOLYSIS < 15 (0-50); Sodium 138 mmol/L (137-145); Total Protein 7.6 g/dL (6.3-8.2)
[2021-12-12 22:48] LABS: COVID19 -Nasal RAPID POSITIVE (Negative)
[2021-12-12 23:04] LABS: Neutrophils Absolute Manual 3782 /uL (3000-5900); Total Cells Counted 100
[2021-12-12 23:05] LABS: RBC Morphology Normal Morphology
== END 2021-12-13 00:36 | disposition home or self-care (01) ==
PROVIDERS: Emergency Provider Emergency Medicine; PCP Family Medicine
DX: U07.1 COVID-19 (principal); R50.9 Fever, unspecified
CPT/HCPCS: 36415; 71045; 80053; 85025; 87635; 99283; C9803

== ENCOUNTER → 2025-01-25 09:01 | Outpatient (CLI) | payer OTHER, SELFPAY ==
[2022-05-02 14:05] VITALS: BMI 29.8
--- NOTE | 2025-01-25 | DI.US.S_ITS ---
PROCEDURE: US CAROTID DOPPLER BI INDICATIONS: TRANSIENT ISCHEMIC ATTACK TECHNIQUE: Color and pulse Doppler interrogation was performed of both carotid systems, with image documentation and velocity measurements. COMPARISON: [facility], MR, MR STROKE, 04/05/2019, 14:16. FINDINGS: Stenosis calculations are based on SRU (Society of Radiologists in Ultrasound) criteria. Right side: Brachial blood pressure: 126/73 mm Hg. Common carotid artery peak systolic velocity: 63 cm/sec. Internal carotid artery peak systolic velocity: 75 cm/sec. Internal carotid artery end diastolic velocity: 19 cm/sec. External carotid artery peak systolic velocity: 111 cm/sec. ICA/CCA peak systolic ratio: 1.2. Porter scale imaging description: Moderate plaque Percent internal carotid artery stenosis: Less than 50% stenosis. Vertebral artery: Flow direction is antegrade. Left side: Brachial blood pressure: 116/73 mm Hg. Common carotid artery peak systolic velocity: 55 cm/sec. Internal carotid artery peak systolic velocity: 94 cm/sec. Internal carotid artery end diastolic velocity: 29 cm/sec. External carotid artery peak systolic velocity: 83 cm/sec. ICA/CCA peak systolic ratio: 1.7. Porter scale imaging description: Moderate plaque Percent internal carotid artery stenosis: Less than 50% stenosis. Vertebral artery: Flow direction is antegrade. Trace plaque. IMPRESSION: 1. Right ICA: Less than 50 % stenosis. 2. Left ICA: Less than 50 % stenosis. 3. Antegrade flow in the bilateral vertebral arteries. Dictated by: Ramesh Avalos M.D. on 01/25/2025 at 13:33 Approved by: Ramesh Avalos M.D. on 01/25/2025 at 13:37
== END ==
PROVIDERS: PCP Family Medicine; Referring Provider Physician Assistant; Visit Provider Physician Assistant
DX: G45.9 Transient cerebral ischemic attack, unspecified (principal)
CPT/HCPCS: 93880

== ENCOUNTER 2025-06-13 03:10 | Emergency (ER) | payer OTHER, SELFPAY ==
[2022-05-02 14:05] VITALS: BMI 29.8
[2025-06-13 03:19] VITALS: BP 133/67; PULSE 59; RESP 16; TEMP 36.5; O2SAT 95; BMI 29.9
--- NOTE | 2025-06-13 03:23 | ED.URI ---
HPI - URI/Sore Throat General Chief Complaint: Upper Respiratory Symptoms Stated Complaint: URI Symptoms Time Seen by Provider: 06/13/25 03:20 Source: patient Mode of arrival: Ambulatory History of Present Illness HPI Narrative: 85-year-old gentleman history of hypertension dyslipidemia presents with cough thick sputum production and sinus drainage ongoing for the past few days unable to sleep as he feels like he is drowning in his sputum and sinus drainage. He denies any fever, chills, bodyaches, sore throat, chest pain, shortness of breath, back pain. Other than what is stated 14 point review system is negative. Related Data Previous Rx's ?Medication ?Instructions ?Recorded losartan 100 1 tab PO QDAY #180 tabs 04/06/18 mg-hydrochlorothiazide 25 mg tablet amoxicillin 875 mg-potassium 1 tab PO BID #14 tabs 06/13/25 clavulanate 125 mg tablet azithromycin 250 mg tablet 250 mg PO DAILY 4 days #4 tabs 06/13/25 Allergies Allergy/AdvReac Type Severity Reaction Status Date / Time cat dander (CAT DANDER) Allergy Unknown Verified 06/13/25 03:19 Review of Systems Review of Systems ROS Unobtainable: All systems reviewed & are unremarkable except as noted in HPI and below Patient History Medical History (Updated 06/13/25 @ 03:32 by Abraham Paris DO) Central sleep apnea Elevated liver function tests Hepatomegaly Lumbar spinal stenosis Neural foraminal stenosis of lumbar spine Allergic rhinitis (Unknown) Erectile dysfunction (Unknown) PTSD (post-traumatic stress disorder) (Unknown) Actinic keratosis (Unknown) BPH (benign prostatic hyperplasia) (Unknown) Hyperlipemia (Unknown) Hypertension (Unknown) Insomnia (Unknown) Sleep apnea (Unknown) Pain of right lower extremity Hip pain Paresthesia and pain of right extremity Pure hypercholesterolemia (05/16/16) Posttraumatic stress disorder (05/16/16) Essential hypertension (05/16/16) Erectile dysfunction (05/16/16) Surgical History S/P laminectomy S/P rotator cuff repair (01/2015) Family History Father Age: 108 Diabetes mellitus Mother No problems noted. Social History household members: spouse alcohol intake: current Smoking Status: Former smoker alcohol intake frequency: holidays/special occasions only Exam Narrative Exam Narrative: GENERAL: [85] year old patient appears stated age. Well-developed patient, in mild distress. HEAD: Atraumatic. Normocephalic. EYES: Pupils equal round and reactive. Extraocular motions intact. No scleral icterus. No injection or drainage. ENT: Nose without bleeding, purulent drainage. Throat without erythema, tonsillar hypertrophy or exudate. Airway patent. NECK: Trachea midline. Non tender CARDIOVASCULAR: Regular rate and rhythm without murmurs, gallops, or rubs. RESPIRATORY: Coarse rhonchi right side GASTROINTESTINAL: Abdomen soft, non-tender, nondistended. EXTREMITIES: No edema or joint tenderness. BACK: Nontender without deformity or crepitance. No flank tenderness. NEURO: AOx3. SKIN: No rash or erythema of visible areas Initial Vital Signs Initial Vital Signs: Vital Signs Temperature 97.7 F 06/13/25 03:19 Pulse Rate 59 L 06/13/25 03:19 Respiratory Rate 16 06/13/25 03:19 Blood Pressure 133/67 06/13/25 03:19 Pulse Oximetry 95 06/13/25 03:19 Oxygen Delivery Method Room Air 06/13/25 03:19 Course Vital Signs Vital signs: Vital Signs - 8 hr 06/13/25 03:19 Temperature 97.7 F Pulse Rate 59 L Respiratory Rate 16 Blood Pressure 133/67 Pulse Oximetry 95 Oxygen Delivery Method Room Air MDM - URI/Sore Throat MDM Narrative Medical decision making narrative: All lab work, vital signs, nurse triage note, medication list, previous ER visits, and all imaging studies reviewed. Patient given Augmentin and Zithromax here and will be discharged on both medication. Differential diagnosis COVID, flu, RSV, pneumonia, sinusitis. Discharge Plan Departure Patient Disposition: Home Clinical Impression: Pneumonia Instructions: DI for Pneumonia -- Adult Activity Restrictions/Additional Instructions: Return with new or worsening symptoms. Take medication as directed. Follow up with PCP in 1-2 weeks if no improvement in symptoms. Prescriptions: New amoxicillin-pot clavulanate 875-125 mg tablet 1 tab PO BID Qty: 14 0RF azithromycin 250 mg tablet 250 mg PO DAILY 4 Days Qty: 4 0RF Rx Instructions: start on day 2 of therapy No Action losartan-hydrochlorothiazide 100-25 mg tablet 1 tab PO QDAY Qty: 180 1RF Stand Alone Forms: Patient Portal/API
[2025-06-13] MEDS: AZITHROMYCIN 250 MG TABLET 500 MG PO (03:32)
[2025-06-13] MEDS: AMOXICILLIN/CLAV 875/125 MG 1 TAB PO (03:33)
== END 2025-06-13 03:35 | disposition home or self-care (01) ==
PROVIDERS: Emergency Provider Family Medicine
DX: J18.9 Pneumonia, unspecified organism (principal)
CPT/HCPCS: 99283